=== PATIENT | male | born 1985 | race Caucasian/White ===

== ENCOUNTER 2017-07-18 16:28 | Emergency (ER) | payer OTHER ==
[2017-07-18 17:06] VITALS: BP 124/76
--- NOTE | 2017-07-18 17:43 | UC ---
Respiratory Complaint HPI - HPI Summary HPI Summary: per operating systems specialist "day 6 of cough, body aches, fever. " Here w/ & 2 kids. 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 cough is significant and want to make sure it's not pneumonia. temp has been kept under control w/ theraflu. no meds in 14 hrs and no fever. otherwise healthy. no medical problems. - History of Current Complaint Chief Complaint: UCRespiratory Stated Complaint: FLU LIKE Time Seen by Provider: 07/18/17 17:42 - Allergies/Home Medications Allergies/Adverse Reactions: Allergies Allergy/AdvReac Type Severity Reaction Status Date / Time No Known Allergies Allergy Verified 07/18/17 17:06 Home Medications: Home Medications Dextromethorphan-Phenylephrine [Theraflu Severe Cold & Co 10-5-325 mg] 1 tab PO DAILY 07/18/17 [History Confirmed 07/18/17] PMH/Surg Hx/FS Hx/Imm Hx Previously Healthy: Yes Endocrine History: Dyslipidemia - Surgical History Surgical History: None - Family History Known Family History: Positive: Cardiac Disease - Social History Alcohol Use: Occasionally Substance Use Type: None Smoking Status (MU): Never Smoked Tobacco Review of Systems Constitutional: Fever, Chills, Fatigue Skin: Negative Eyes: Negative ENT: Sore Throat Respiratory: Cough Cardiovascular: Negative Gastrointestinal: Negative Genitourinary: Negative Motor: Negative Neurovascular: Negative Musculoskeletal: Myalgia Neurological: Negative Psychological: Negative Is Patient Immunocompromised?: No All Other Systems Reviewed And Are Negative: Yes Physical Exam Triage Information Reviewed: Yes Appearance: Well-Nourished, Ill-Appearing Vital Signs: Initial Vital Signs Temp 99.4 F 07/18/17 17:01 Pulse 91 07/18/17 17:01 Resp 24 07/18/17 17:01 BP 124/76 07/18/17 17:01 Pulse Ox 95 07/18/17 17:01 Vital Signs Reviewed: Yes Eyes: Positive: Conjunctiva Clear ENT: Positive: Hearing grossly normal, Pharyngeal erythema, TMs normal. Negative: Tonsillar swelling, Tonsillar exudate Dental Exam: Normal Neck exam: Normal Neck: Positive: Supple, Nontender, No Lymphadenopathy Respiratory: Positive: No respiratory distress, No accessory muscle use, Decreased breath sounds, Rhonchi - LLL slight/possible.. Negative: Crackles, Stridor, Wheezing Cardiovascular Exam: Normal Cardiovascular: Positive: RRR, No Murmur, Pulses Normal, Brisk Capillary Refill Abdomen Description: Positive: Nontender, Soft Musculoskeletal Exam: Normal Neurological Exam: Normal Psychological Exam: Normal Skin Exam: Normal UC Diagnostic Evaluation - Laboratory O2 Sat by Pulse Oximetry: 95 Respiratory Course/Dx - Course Course Of Treatment: CXR- bronchitis. no consolidation or pneumonia seen on CXR per radiology. Influenza - negative. - Differential Dx/Diagnosis Differential Diagnosis/HQI/PQRI: Bronchitis, Lower Resp Infection, Other - pneumonia, influenza. Provider Diagnoses: Bronchitis Discharge - Discharge Plan Condition: Stable Disposition: HOME Prescriptions: Albuterol HFA INHALER* [Ventolin HFA Inhaler*] 2 puff INH Q4H PRN 10 Days #1 mdi PRN Reason: Cough Patient Education Materials: Acute Bronchitis (ED) Referrals: Bhargavi Reeves MD [Primary Care Provider] - 3 Days Additional Instructions: Drink lots of fluids and get rest. Can take tylenol, ibuprofen. Please make sure to follow up if your symptoms worsen or persist sooner than 3 days. Continue to be cautious not to spread your illness. Chest xray was read as probable bronchitis but no sign of pneumonia. Influneza was negative.
--- NOTE | 2017-07-18 18:37 | RAD ---
Indication: Cough. 2 views of the chest including dual energy PA views demonstrates no mediastinal shift. Heart is of normal size and configuration. Peribronchial thickening in the lung bases may represent bronchitis. No definite alveolar consolidation is noted. Clinical correlation is suggested. IMPRESSION: Peribronchial thickening in the lung bases may represent bronchitis. No definite pneumonia is noted.
== END 2017-07-18 18:59 | disposition home or self-care (01) ==
LOC: UCCORT 16:28
DX: J40 Bronchitis, not specified as acute or chronic (principal)
CPT/HCPCS: 71046; 87502; 99202; G0463

== ENCOUNTER 2018-02-07 16:33 | Emergency (ER) | payer OTHER ==
[2018-02-07 17:15] VITALS: BP 126/65
--- NOTE | 2018-02-07 17:22 | UC ---
[facility] Dental HPI - HPI Summary HPI Summary: few days of right upper dental pain now has an abscess on the gum and some facial swelling - History of Current Complaint Chief Complaint: UCDentalProblem Stated Complaint: DENTAL PAIN Time Seen by Provider: 02/07/18 17:10 Hx Obtained From: Patient Onset/Duration: Sudden Onset Pain Intensity: 7 Pain Scale Used: 0-10 Numeric Aggravating Factor(s): Nothing Alleviating Factor(s): Nothing Related History: Swelling - Allergies/Home Medications Allergies/Adverse Reactions: Allergies Allergy/AdvReac Type Severity Reaction Status Date / Time No Known Allergies Allergy Verified 02/07/18 17:09 PMH/Surg Hx/FS Hx/Imm Hx Previously Healthy: Yes - Surgical History Surgical History: None - Family History Known Family History: Positive: Cardiac Disease - Social History Occupation: Employed Full-time Lives: With Family Alcohol Use: Occasionally Substance Use Type: None Smoking Status (MU): Never Smoked Tobacco - Immunization History Most Recent Tetanus Shot: UTD Review of Systems Constitutional: Negative Skin: Negative Eyes: Negative ENT: Dental Pain Respiratory: Negative Cardiovascular: Negative Gastrointestinal: Negative Genitourinary: Negative Motor: Negative Neurovascular: Negative Musculoskeletal: Negative Neurological: Negative Psychological: Negative Is Patient Immunocompromised?: No All Other Systems Reviewed And Are Negative: Yes Physical Exam Triage Information Reviewed: Yes Appearance: Well-Appearing, No Pain Distress, Well-Nourished Vital Signs: Initial Vital Signs Temp 98.3 F 02/07/18 17:10 Pulse 75 02/07/18 17:10 Resp 16 02/07/18 17:10 BP 126/65 02/07/18 17:10 Pulse Ox 99 02/07/18 17:10 Vital Signs Reviewed: Yes Eye Exam: Normal Eyes: Positive: Conjunctiva Clear ENT Exam: Normal ENT: Positive: Normal ENT inspection, Hearing grossly normal, Dental tenderness , Uvula midline. Negative: Trismus, Muffled voice, Hoarse voice, Sinus tenderness Dental Exam: Other Dental: Positive: Abscess @ - right upper gum Neck exam: Normal Neck: Positive: Supple, Nontender, No Lymphadenopathy Respiratory Exam: Normal Respiratory: Positive: Chest non-tender, No respiratory distress, No accessory muscle use Cardiovascular Exam: Normal Cardiovascular: Positive: RRR, Pulses Normal, Brisk Capillary Refill Musculoskeletal Exam: Normal Musculoskeletal: Positive: Strength Intact, ROM Intact, No Edema Neurological Exam: Normal Neurological: Positive: Muscle Tone Normal Psychological Exam: Normal Skin Exam: Normal Dental Complaint Course/Dx - Course Course Of Treatment: chlorhex. mouth wash, amoxicillin, aleeve for pain follow with dentist this week - Differential Dx/Diagnosis Provider Diagnoses: right upper gum dental abscess Discharge - Sign-Out/Discharge Documenting (check all that apply): Patient Departure - Discharge Plan Condition: Stable Disposition: HOME Prescriptions: Amoxicillin PO (*) [Amoxicillin 500 MG CAP*] 500 mg PO TID #30 cap Chlorhexidine MOUTHWASH 0.12%* [Peridex Mouth Wash 0.12%*] 15 ml MT BID #473 ml Patient Education Materials: Dental Abscess (ED), Warm Compress or Soak (ED) Referrals: Bhargavi Reeves MD [Primary Care Provider] - Additional Instructions: Follow with dentist SIMONE - Billing Disposition and Condition Condition: STABLE Disposition: Home
== END 2018-02-07 17:30 | disposition home or self-care (01) ==
LOC: UCCORT 16:33
DX: K05.219 Aggressive periodontitis, localized, unspecified severity (principal)
CPT/HCPCS: 99212; G0463